=== PATIENT | male | born 1965 | race African-American/Black ===

== ENCOUNTER 2021-09-14 14:08 | Observation (INO) ==
[2021-09-14] MEDS ORDERED: SODIUM CHLORIDE 0.9% 1,000 ML IV STA (14:34)
[2021-09-14] MEDS ORDERED: ONDANSETRON 4 MG/2 ML VIAL IV STA (14:34)
[2021-09-14 15:10] LABS: Basophils % 0.1 % (0.0-0.8); Eosinophils # 0.1 10*3/uL (0.0-0.87); Eosinophils % 1.3 % (0.00-10.9); Hemoglobin 10.5 GM/DL (14.0-18.0); Immature Granulocytes % 0.5 %; Immature Granulocytes Absolute 0.05 #; Lymphocytes # 1.6 10*3/uL (1.4-4.0); Lymphocytes % 17.5 % (21.2-54.2); Mean Corpuscular HGB Conc 31.8 GM/DL (32-36); Mean Platelet Volume 9.6 FL (9.6-12.0); Monocytes # 1.1 10*3/uL (0.11-0.8); Monocytes % 11.9 % (1.7-12.7); Neutrophils % 68.7 % (38.7-73.9); Platelet Count 243 T/CUMM (130-400); Red Blood Count 3.93 MC/CUMM (3.8-5.5); Red Cell Distribution Width 14.6 % (9.3-17.3); White Blood Count 9.4 T/CUMM (4-12)
[2021-09-14 15:28] LABS: Alanine Aminotransferase 32 U/L (16-61); Albumin 2.7 G/DL (3.4-5.0); Alkaline Phosphatase 163 U/L (45-117); Aspartate Amino Transferase 37 U/L (0-37); Bilirubin,Total < 0.39 MG/DL (0.20-1.00); Blood Urea Nitrogen 40 MG/DL (7-18); Calcium 8.4 MG/DL (8.5-10.1); Carbon Dioxide 22 MMOL/L (21-32); Chloride 106 MMOL/L (98-107); Glucose 119 MG/DL (74-106); Potassium 3.9 MMOL/L (3.5-5.1); Sodium 136 MMOL/L (136-145); Total Protein 7.1 G/DL (6.4-8.2)
[2021-09-14] MEDS ORDERED: GLUCAGON 1 MG VIAL IM PRN (16:19)
[2021-09-14] MEDS ORDERED: ALBUTEROL 2.5 MG/3 ML NEB RESP TX PRN ×2 (16:19→16:39)
[2021-09-14] MEDS ORDERED: traZODone 50 MG TABLET PO PRN (16:19)
[2021-09-14] MEDS ORDERED: ONDANSETRON 4 MG/2 ML VIAL IV PRN (16:19)
[2021-09-14] MEDS ORDERED: NICOTINE 21 MG/24 HR PATCH TRANSDERM PRN (16:19)
[2021-09-14] MEDS ORDERED: DEXTROSE 10% 250 ML BAG IV PRN (16:27)
[2021-09-14] MEDS: INSULIN REGULAR 100 UNIT/ML SUBCUT SCH ×2 (17:15→21:10)
[2021-09-14] MEDS: LACTATED RINGERS 1,000 ML IV SCH (17:16)
[2021-09-14 17:18] LABS: Hyaline Casts,Urine 11 /LPF (0-3); Mucus,Urine Occasional /LPF (Occasional); RBC,Urine 2 /HPF (0-4)
[2021-09-14 17:24] LABS: Urine Appearance Clear (Clear); Urine Color Yellow (Yellow); Urine pH 5.5 (4.5-8.0)
[2021-09-14 17:25] LABS: Bilirubin,Urine Negative (Negative); Blood, Urine Trace mg/dL (Negative); Glucose,Urine (UA) Trace mg/dL (Negative); Ketones,Urine Negative (Negative); Nitrite,Urine Negative (Negative); Protein,Urine Negative (Negative); Urine Urobilinogen 0.3 eU/dL (<2.0)
[2021-09-14 18:24] LABS: INR 1.1; PT Patient Result 11.8 SECS (10.5-12.0)
[2021-09-14] MEDS ORDERED: ENOXAPARIN 40 MG/0.4 ML SYRINGE SUBCUT SCH (21:00)
[2021-09-14] MEDS ORDERED: ATORVASTATIN 10 MG TABLET PO SCH (21:00)
[2021-09-14] MEDS ORDERED: QUEtiapine 100 MG TABLET PO SCH (21:00)
[2021-09-14] MEDS: LORazepam 1 MG TABLET PO PRN (21:10)
[2021-09-15] MEDS: LACTATED RINGERS 1,000 ML IV SCH ×3 (01:45→18:21)
[2021-09-15] MEDS: LORazepam 1 MG TABLET PO PRN ×2 (02:40→09:28)
[2021-09-15] MEDS: ACETAMINOPHEN 325 MG TABLET PO PRN ×2 (02:40→09:27)
[2021-09-15 05:39] LABS: Basophils % 0.3 % (0.0-0.8); Eosinophils # 0.2 10*3/uL (0.0-0.87); Eosinophils % 2.3 % (0.00-10.9); Hematocrit 28.3 VOL% (42.0-52.0); Hemoglobin 9.1 GM/DL (14.0-18.0); Immature Granulocytes % 0.3 %; Immature Granulocytes Absolute 0.03 #; Lymphocytes # 2.7 10*3/uL (1.4-4.0); Lymphocytes % 28.7 % (21.2-54.2); Mean Corpuscular HGB Conc 32.2 GM/DL (32-36); Mean Corpuscular Volume 83.5 FL (87-102); Mean Platelet Volume 10.2 FL (9.6-12.0); Monocytes # 1.4 10*3/uL (0.11-0.8); Neutrophils % 53.4 % (38.7-73.9); Platelet Count 243 T/CUMM (130-400); Red Blood Count 3.39 MC/CUMM (3.8-5.5); Red Cell Distribution Width 14.4 % (9.3-17.3); White Blood Count 9.2 T/CUMM (4-12)
[2021-09-15 06:03] LABS: Alanine Aminotransferase 26 U/L (16-61); Albumin 2.3 G/DL (3.4-5.0); Alkaline Phosphatase 134 U/L (45-117); Aspartate Amino Transferase 31 U/L (0-37); Bilirubin,Total < 0.39 MG/DL (0.20-1.00); Blood Urea Nitrogen 38 MG/DL (7-18); Carbon Dioxide 21 MMOL/L (21-32); Chloride 107 MMOL/L (98-107); Cholesterol 106 MG/DL (50-200); Glucose 109 MG/DL (74-106); HDL Cholesterol 35 MG/DL (40-60); Osmolality,Calculated 284.7 MOS/KG (273-304); Potassium 3.8 MMOL/L (3.5-5.1); Risk Ratio 3.03; Sodium 138 MMOL/L (136-145); Triglycerides 101 MG/DL (2-150); VLDL Cholesterol 20.2 MG/DL
[2021-09-15] MEDS: INSULIN REGULAR 100 UNIT/ML SUBCUT SCH ×3 (07:48→18:20)
[2021-09-15] MEDS ORDERED: MULTIVITAMIN (CENTRUM) TABLET PO SCH (09:00)
[2021-09-15] MEDS ORDERED: THIAMINE 100 MG TABLET PO SCH (09:00)
[2021-09-15] MEDS ORDERED: FOLIC ACID 1 MG TABLET PO SCH (09:00)
[2021-09-15] MEDS ORDERED: PANTOPRAZOLE 40 MG TABLET PO SCH (09:00)
[2021-09-15 15:35] VITALS: BP 134/73
== END 2021-09-15 18:17 ==
LOC: N.EDINP 14:08 → N.ED 14:08 → N.5E 17:58
PROVIDERS: ADMIT Family Medicine; ATTEND Family Medicine